=== PATIENT | female | born 1965 | race Caucasian/White ===

== ENCOUNTER 2017-06-20 23:21 | Emergency (ER) | payer OTHER ==
[~2017-06-20] VITALS: Ht 167.6 cm; Wt 80.0 kg
[~2017-06-20 23:21] MED LIST: PRIL20CA PO; PROT40TA PO; SUCR1S PO
[2017-06-20 23:22] VITALS: BP 135/81; PULSE 120; RESP 16; TEMP 99; O2SAT 98
[2017-06-20] MEDS ORDERED: HYDR12.57 PO (23:41)
[2017-06-20] MEDS ORDERED: PHEN1LIQ60 PO (23:41)
[2017-06-20] MEDS ORDERED: AMLO5TAB2 PO (23:41)
[2017-06-20 23:48] VITALS: BP 147/77; PULSE 108; RESP 20; O2SAT 97
[2017-06-20] MEDS ORDERED: SODIUM CHLOR 0.9% 1000 ML INJ 1,000 ML IV ONE (23:57)
[2017-06-21] MEDS ORDERED: SODIUM CHLORIDE 0.9% FLUSH 10 ML FLUSH IVF PRN
--- NOTE | 2017-06-21 00:19 | RADRPT ---
EXAM DATE/TIME: 06/21/2017 00:03 [facility] COMPARISON: No previous studies available for comparison. INDICATIONS : Chest pain and weakness MEDICAL HISTORY : None. SURGICAL HISTORY : None. ENCOUNTER: Initial ACUITY: 1 day PAIN SCORE: 7/10 LOCATION: Bilateral chest FINDINGS: Single AP view of the chest. The lungs are clear. Cardiomediastinal silhouette within normal limits. No evidence of pleural effusion or pneumothorax. CONCLUSION: No acute cardiopulmonary disease identified. Lui Doherty MD on June 21, 2017 at 0:15 Board Certified Radiologist. This report was verified electronically.
[2017-06-21 00:39] LABS: AUTOMATED NEUTROPHIL # 7.5 TH/MM3 (1.8-7.7); BASOPHIL % 0.2 % (0.0-2.0); EOSINOPHIL # 0.1 TH/MM3 (0-0.4); EOSINOPHIL % 0.7 % (0.0-4.0); HEMATOCRIT 38.5 % (35.0-46.0); HEMOGLOBIN 13.4 GM/DL (11.6-15.3); LYMPH % 9.3 % (9.0-44.0); LYMPHOCYTE # 0.9 TH/MM3 (1.0-4.8); MEAN CELL VOLUME 87.1 FL (80.0-100.0); MEAN CORPUSCULAR HEMOGLOBIN 30.3 PG (27.0-34.0); MEAN CORPUSCULAR HGB CONC 34.7 % (32.0-36.0); MONO % 8.4 % (0.0-8.0); MONOCYTE # 0.8 TH/MM3 (0-0.9); NEUT % 81.4 % (16.0-70.0); PLATELET COUNT 245 TH/MM3 (150-450); RED BLOOD COUNT 4.42 MIL/MM3 (4.00-5.30); RED CELL DISTRIBUTION WIDTH 13.1 % (11.6-17.2); WHITE BLOOD COUNT 9.2 TH/MM3 (4.0-11.0)
[2017-06-21 00:54] LABS: PROTHROMBIN TIME - PATIENT 10.1 SEC (9.8-11.6)
--- NOTE | 2017-06-21 01:00 | RADRPT ---
EXAM DATE/TIME: 06/21/2017 00:37 [facility] COMPARISON: No previous studies available for comparison. INDICATIONS : Seizures. RADIATION DOSE: 56.35 CTDIvol (mGy) MEDICAL HISTORY : Cardiovascular disease. Hypertension. Gastroesophageal reflux disease. SURGICAL HISTORY : Cholecystectomy. ENCOUNTER: Initial ACUITY: 1 day PAIN SCALE: 0/10 LOCATION: cranial TECHNIQUE: Multiple contiguous axial images were obtained of the head. Using automated exposure control and adj ustment of the mA and/or kV according to patient size, radiation dose was kept as low as reasonably a chievable to obtain optimal diagnostic quality images. DICOM format image data is available electro nically for review and comparison. FINDINGS: CEREBRUM: The ventricles are normal for age. No evidence of midline shift, mass lesion, hemorrhage or acute in farction. No extra-axial fluid collections are seen. POSTERIOR FOSSA: The cerebellum and brainstem are intact. The 4th ventricle is midline. The cerebellopontine angle i s unremarkable. EXTRACRANIAL: The visualized portion of the orbits is intact. SKULL: The calvaria is intact. No evidence of skull fracture. CONCLUSION: No acute intracranial findings. Lui Doherty MD on June 21, 2017 at 0:51 Board Certified Radiologist. This report was verified electronically.
[2017-06-21 01:13] LABS: ALBUMIN 3.6 GM/DL (3.4-5.0); ALKALINE PHOSPHATASE 52 U/L (45-117); ALT (GPT) 20 U/L (10-53); AST (GOT) 17 U/L (15-37); BICARBONATE 24.6 MEQ/L (21.0-32.0); BLOOD UREA NITROGEN 6 MG/DL (7-18); CALCIUM 8.5 MG/DL (8.5-10.1); CHLORIDE 100 MEQ/L (98-107); CREATININE 0.89 MG/DL (0.50-1.00); GLOMERULAR FILTRATION RATE 67 ML/MIN (>89); GLUCOSE,RANDOM 194 MG/DL (74-106); SODIUM (NA) 136 MEQ/L (136-145); TOTAL BILIRUBIN ADULT 0.4 MG/DL (0.2-1.0); TOTAL PROTEIN 7.6 GM/DL (6.4-8.2); TROPONIN I LESS THAN 0.02 NG/ML (0.02-0.05)
[2017-06-21 01:35] LABS: BACTERIA, URINE FEW /hpf; BILIRUBIN, URINE NEG (NEG); BLOOD, URINE MOD (NEG); GLUCOSE,URINE 70 mg/dL (NEG); KETONE, URINE 10 mg/dL (NEG); MUCUS URINE FEW /lpf (OCC); NITRITE,URINE NEG (NEG); PH, URINE 7.5 (5.0-8.5); URINE LEUKOCYTE ESTERASE SMALL (NEG)
[2017-06-21 01:36] LABS: URINE COLOR RED (YELLW/STRAW)
[2017-06-21] MEDS ORDERED: POTASSIUM CHLORIDE 20 MEQ CONTROLLED RELEASE TAB PO ONE (01:45)
[2017-06-21] MEDS ORDERED: cefTRIAXone INJ 1,000 MG in SODIUM CHLORIDE 0.9% INJ 100 ML IV ONE (01:45)
[2017-06-21] MEDS ORDERED: POTASSIUM CHLOR 10 MEQ PREMIX 100 ML IV ONE (01:45)
--- NOTE | 2017-06-21 01:47 | PD ---
HPI Chief Complaint: Seizure Time Seen by Provider: 23:57 Travel History International Travel<30 days: No Contact w/Intl Traveler<30days: No Traveled to known affect area: No History of Present Illness HPI 51-year-old female presents to the emergency department the care of spouse for evaluation of possible new-onset seizure. Patient has felt poorly since family members have had respiratory illness. Patient to continue dxwr-wrp-ebcosjm multiple medication cold preparation and shortly thereafter started to feel as if she was going to vomit sat down on the floor to vomit and then was witnessed by spouse to have a syncopal episode where she was shaking and spouse felt she had had a seizure for approximately 30 seconds in duration. Patient reportedly awakened she wasn't where she was for a few minutes and then had an additional episode with jerking and shaking and this was approximately 20 seconds induration and afterwards she was confused for several minutes and then returned back to her baseline mentation. No prior history of seizure disorder no prior history of syncope. Patient does have history of hypertension and PVCs. Patient presently complains of lower abdominal pain consistent with menses which she states is normal for her. There was no trauma associated with the event as it was witnessed and patient was assisted to the floor from a sitting position. No head injury. Patient does not complain of headache or neck stiffness. No complaint of shortness of breath or chest pain no generalized abdominal pain or epigastric pain no flank pain no mid scapular pain and no extremity numbness tingling or weakness. Patient reportedly has had fever of 102 over the past 2 days. PFSH Past Medical History Narrative Medical PVCs hypertension cholecystectomy occasional alcohol use nursing notes reviewed Heart Rhythm Problems: Yes (PVC) Cardiovascular Problems: Yes (PVC'S, HTN) GERD: Yes Reproductive: Yes (Menorrhagia; scheduled for hysterectomy 06/29/17) ?: Not LMP: 06/20/17 Past Surgical History Cholecystectomy: Yes (1997) Social History Alcohol Use: Yes (SOCIALLY) Tobacco Use: No (QUIT 13 YEARS AGO) Substance Use: No Allergies-Medications (Allergen,Severity, Reaction): Coded Allergies: codeine (Unverified Allergy, Unknown, 06/20/17) "shakes" and "vomits violently" Reported Meds & Prescriptions Reported Meds & Active Scripts Active Reported Amlodipine (Amlodipine Besylate) 5 Mg Tab 5 Mg PO DAILY Hydrochlorothiazide 12.5 Mg Cap 12.5 Mg PO DAILY Nyquil Severe Cold/Flu Liq (Cufkmohoqfecs-Cujqwoumjz-GP-Apap Liq) 5-6.25-10-325 Mg/15 Ml Liq 30 Ml PO Q4HR PRN Review of Systems Except as stated in HPI: all other systems reviewed are Neg General / Constitutional: Positive: Fever HENT: Positive: Lightheadedness, Congestion Cardiovascular: No: Chest Pain or Discomfort Respiratory: Positive: Cough, No: Shortness of Breath, Wheezing Gastrointestinal: Positive: Nausea, Vomiting, No: Diarrhea, Abdominal Pain Genitourinary: No: Frequency, Dysuria Musculoskeletal: Positive: Myalgias, Arthralgias Skin: No Rash Neurologic: Positive: Weakness, Dizziness, Syncope, No: Focal Abnormalities, Coordination Problem, Headache, Change in Mentation, Slurred Speech Psychiatric: No: Anxiety Endocrine: No: Heat Intolerance Hematologic/Lymphatic: No: Easy Bruising Physical Exam Narrative GENERAL: Well-developed well-nourished female in no acute distress no respiratory distress SKIN: Warm and dry. HEAD: Atraumatic. Normocephalic. EYES: Pupils equal and round. No scleral icterus. No injection or drainage. ENT: No nasal bleeding or discharge. Mucous membranes pink and moist. NECK: Trachea midline. No JVD. CARDIOVASCULAR: Regular rate and rhythm. RESPIRATORY: No accessory muscle use. Clear to auscultation. Breath sounds equal bilaterally. GASTROINTESTINAL: Abdomen soft, non-tender, nondistended. Hepatic and splenic margins not palpable. MUSCULOSKELETAL: Extremities without clubbing, cyanosis, or edema. No obvious deformities. NEUROLOGICAL: Awake and alert. No obvious cranial nerve deficits. Motor grossly within normal limits. Five out of 5 muscle strength in the arms and legs. Normal speech. PSYCHIATRIC: Appropriate mood and affect; insight and judgment normal. Data Data Last Documented VS Vital Signs Date Time Temp Pulse Resp B/P (MAP) Pulse Ox O2 Delivery O2 Flow Rate FiO2 06/21/17 02:06 99 Room Air 06/20/17 23:48 108 20 06/20/17 23:22 99.0 Orders Orders Electrocardiogram (06/20/17 23:57) Ed Urine Pregnancytest Poc (06/20/17 23:57) Complete Blood Count With Diff (06/20/17 23:57) Comprehensive Metabolic Panel (06/20/17 23:57) Magnesium (Mg) (06/20/17 23:57) Troponin I (06/20/17 23:57) Act Partial Throm Time (Ptt) (06/20/17 23:57) Prothrombin Time / Inr (Pt) (06/20/17 23:57) Urinalysis - C+S If Indicated (06/20/17 23:57) Chest, Single Ap (06/20/17 23:57) Ct Brain W/O Iv Contrast(Rout) (06/20/17 23:57) Ecg Monitoring (06/20/17 23:57) Iv Access Insert/Monitor (06/20/17 23:57) Oximetry (06/20/17 23:57) Sodium Chloride 0.9% Flush (Ns Flush) (06/21/17 00:00) Sodium Chlor 0.9% 1000 Ml Inj (Ns 1000 M (06/20/17 23:57) Influenzae A/B Antigen (06/20/17 23:57) Urine Culture (06/21/17 00:35) Potassium Chlor 10 Meq Premix (Kcl 10 Me (06/21/17 01:45) Potassium Chloride (Kcl) (06/21/17 01:45) Ceftriaxone Inj (Rocephin Inj) (06/21/17 01:45) Cath For Specimen (06/21/17 01:47) Urinalysis - C+S If Indicated (06/21/17 03:59) Labs Laboratory Tests Test 06/20/17 23:50 06/21/17 00:35 06/21/17 03:15 White Blood Count 9.2 TH/MM3 Red Blood Count 4.42 MIL/MM3 Hemoglobin 13.4 GM/DL Hematocrit 38.5 % Mean Corpuscular Volume 87.1 FL Mean Corpuscular Hemoglobin 30.3 PG Mean Corpuscular Hemoglobin Concent 34.7 % Red Cell Distribution Width 13.1 % Platelet Count 245 TH/MM3 Mean Platelet Volume 8.0 FL Neutrophils (%) (Auto) 81.4 % Lymphocytes (%) (Auto) 9.3 % Monocytes (%) (Auto) 8.4 % Eosinophils (%) (Auto) 0.7 % Basophils (%) (Auto) 0.2 % Neutrophils # (Auto) 7.5 TH/MM3 Lymphocytes # (Auto) 0.9 TH/MM3 Monocytes # (Auto) 0.8 TH/MM3 Eosinophils # (Auto) 0.1 TH/MM3 Basophils # (Auto) 0.0 TH/MM3 CBC Comment DIFF FINAL Differential Comment Prothrombin Time 10.1 SEC Prothromb Time International Ratio 1.0 RATIO Activated Partial Thromboplast Time 26.4 SEC Blood Urea Nitrogen 6 MG/DL Creatinine 0.89 MG/DL Random Glucose 194 MG/DL Total Protein 7.6 GM/DL Albumin 3.6 GM/DL Calcium Level 8.5 MG/DL Magnesium Level 2.0 MG/DL Alkaline Phosphatase 52 U/L Aspartate Amino Transf (AST/SGOT) 17 U/L Alanine Aminotransferase (ALT/SGPT) 20 U/L Total Bilirubin 0.4 MG/DL Sodium Level 136 MEQ/L Potassium Level 2.9 MEQ/L Chloride Level 100 MEQ/L Carbon Dioxide Level 24.6 MEQ/L Anion Gap 11 MEQ/L Estimat Glomerular Filtration Rate 67 ML/MIN Troponin I LESS THAN 0.02 NG/ML Urine Color RED LIGHT-YELLOW Urine Turbidity CLOUDY CLEAR Urine pH 7.5 7.0 Urine Specific [place] 1.024 1.003 Urine Protein 100 mg/dL NEG mg/dL Urine Glucose (UA) 70 mg/dL NEG mg/dL Urine Ketones 10 mg/dL NEG mg/dL Urine Occult Blood MOD NEG Urine Nitrite NEG NEG Urine Bilirubin NEG NEG Urine Urobilinogen LESS THAN 2.0 MG/DL LESS THAN 2.0 MG/DL Urine Leukocyte Esterase SMALL NEG Urine RBC /hpf LESS THAN 1 /hpf Urine WBC 173 /hpf 2 /hpf Urine Bacteria FEW /hpf Urine Mucus FEW /lpf Microscopic Urinalysis Comment CULTURE INDICATED CATH-CULT NOT IND Urine Squamous Epithelial Cells 1 /hpf [facility] Medical Decision Making Medical Screen Exam Complete: Yes Emergency Medical Condition: Yes Medical Record Reviewed: Yes Interpretation(s) EKG: Normal sinus rhythm rate [address] elevation injury pattern or ectopy noted Last Impressions Head CT 06/20/172356 Signed Impressions: Service Date/Time: Wednesday, June 21, 2017 00:37 - CONCLUSION: No acute intracranial findings. Lui Doherty MD Chest X-Ray 06/20/172356 Signed Impressions: Service Date/Time: Wednesday, June 21, 2017 00:03 - CONCLUSION: No acute cardiopulmonary disease identified. Lui Doherty MD CBC & BMP Diagram 06/20/17 23:50 Total Protein 7.6, Albumin 3.6, Calcium Level 8.5, Magnesium Level 2.0, Alkaline Phosphatase 52, Aspartate Amino Transf (AST/SGOT) 17, Alanine Aminotransferase (ALT/SGPT) 20, Total Bilirubin 0.4 Vital Signs Date Time Temp Pulse Resp B/P (MAP) Pulse Ox O2 Delivery O2 Flow Rate FiO2 06/21/17 02:06 99 Room Air 06/20/17 23:48 108 20 147/77 (100) 97 06/20/17 23:22 99.0 120 16 135/81 (99) 98 Room Air Differential Diagnosis Near syncope syncope new-onset seizure adverse medication reaction arrhythmia electrolyte disturbance ACS PE influenza UTI Narrative Course patient placed on bus driver/monitor with continuous pulse oximetry specimens collected and sent for resulting in CT brain noncontrast performed Patient administered IV fluids Patient resting comfortably no seizure activity or syncopal activity witnessed in the emergency department patient is up out of bed to provide urine specimen Identified urine specimen as clean-catch with menses therefore many casts catheter specimen collected for fracture urinalysis Patient received additional IV fluids Rocephin 1 g IV piggyback also potassium replacement with IV potassium and oral potassium Patient resting comfortable he was seen no complaints 5:30 AM patient is clinically stable for outpatient management and follow-up with primary care provider Diagnosis Primary Impression: Syncope Qualified Codes: R55 - Syncope and collapse Additional Impressions: Hypokalemia URI (upper respiratory infection) Qualified Codes: J06.9 - Acute upper respiratory infection, unspecified Adverse effect of zybh-gxh-rzxvodd medication Qualified Codes: T50.905A - Adverse effect of unspecified drugs, medicaments and biological substances, initial encounter Referrals: Primary Care Physician 1 day Patient Instructions: General Instructions Additional Instructions: Increase fluid hydration Takes Zofran as prescribed as needed for nausea and/or vomiting No work 2 days Monitor temperature every 4 hours with thermometer take as needed acetaminophen/ Tylenol every 4 hours for fever 100.4F or greater or may use ibuprofen/Advil/ Motrin every 6-8 hours as needed for fever 100.4F or greater Follow-up with your primary care provider call office on Thursday to schedule follow-up appointment on Thursday Return to the emergency department for any concerns or change in condition No driving of vehicle's climbing ladders or swimming until followed by primary care provider Add potassium containing foods and beverages to dietary intake Do not use jwzh-xct-olftdfo cold and cough preparations Complete course of antibiotic as prescribed Med/Other Pt SpecificInfo: Prescription(s) given Scripts Cefuroxime (Ceftin) 250 Mg Tab 500 MG PO BID for 7 Days, #28 TAB Prov: Patricia Cline MD 06/21/17 Potassium Chloride ER (Potassium Chloride ER) 10 Meq Cap 10 MEQ PO BID for Electrolyte Replacement for 5 Days, #10 CAP 0 Refills Prov: Patricia Cline MD 06/21/17 Ondansetron Odt (Zofran Odt) 4 Mg Tab 4 MG SL Q6HR Y for Nausea/Vomiting, #10 TAB 0 Refills Prov: Patricia Cline MD 06/21/17 Disposition: 01 DISCHARGE HOME Condition: Stable Patricia Cline MD Jun 21, 2017 01:47
[2017-06-21 02:06] VITALS: O2SAT 99
[2017-06-21 04:14] LABS: BILIRUBIN, URINE NEG (NEG); BLOOD, URINE NEG (NEG); GLUCOSE,URINE NEG (NEG); KETONE, URINE NEG (NEG); NITRITE,URINE NEG (NEG); SQUAMOUS EPITHELIAL CELL URINE 1 /hpf (0-5); URINE COLOR LIGHT-YELLOW (YELLW/STRAW); URINE LEUKOCYTE ESTERASE NEG (NEG)
[2017-06-21] MEDS ORDERED: POTA10CA PO (05:29)
[2017-06-21] MEDS ORDERED: CEFU1TAB18 PO (05:29)
[2017-06-21] MEDS ORDERED: ZOFR4TAB3 SL (05:29)
--- NOTE | 2017-06-21 13:44 | EKG ---
Date Performed: 06/21/2017 Time Performed: 01:57:17 PTAGE: 51 years EKG: Sinus rhythm NORMAL ECG NO PREVIOUS TRACING DOCTOR: Ben Zuluaga Interpretating Date/Time 06/21/2017 13:43:04
== END 2017-06-21 06:06 | disposition home or self-care (01) ==
LOC: NEPC 23:21
DX: R55 Syncope and collapse (principal); E87.6 Hypokalemia; J06.9 Acute upper respiratory infection, unspecified; T49.3X5A Adverse effect of emollients, demulcents and protectants, initial encounter; R11.2 Nausea with vomiting, unspecified; R53.1 Weakness; I10 Essential (primary) hypertension; I49.3 Ventricular premature depolarization; K21.9 Gastro-esophageal reflux disease without esophagitis
CPT/HCPCS: 70450; 71045; 80053; 81001; 83735; 84484; 84703; 85025; 85610; 85730; 87086; 87804; 93005; 96361; 96365; 96366; 96367; 99285; J0696; J3480; J7030

== ENCOUNTER 2018-04-26 05:40 | Inpatient (IN) ==
[2018-04-26] MEDS ORDERED: Chlorhexidine Gluconate 2% 1 Pack (2 Cloths) TOPICAL ONE (06:20)
[2018-04-26] MEDS ORDERED: Metoprolol Tartrate 25 MG Tablet PO ONE (06:20)
[2018-04-26] MEDS ORDERED: ceFAZolin 2 GM IV; once IV.SIG ONE (06:30)
[2018-04-26] MEDS ORDERED: Sodium Chlor 0.9% Inj 500 ML IV.SIG SCH (07:00)
[2018-04-26] MEDS ORDERED: Estrogens Congugated Vag Cream w/app 30 GM Tube VAGINAL ONE (07:08)
[2018-04-26] MEDS ORDERED: Bupivacaine/Epinephrine Inj 0.25% 50 ML Vial ONE (07:08)
[2018-04-26] MEDS ORDERED: Succinylcholine Inj 100 MG/5 ML Syringe IV.PUSH ONE (08:05)
[2018-04-26] MEDS ORDERED: Lidocaine PF 1% Inj 5 ML Syringe OTHER ONE (08:05)
[2018-04-26] MEDS ORDERED: Phenylephrine/NS 1000 MCG/10ML Syringe IV.PUSH ONE (08:05)
[2018-04-26] MEDS ORDERED: Bupivacaine Liposomal PF 1.3% Inj 20 ML Vial ONE (09:08)
[2018-04-26] MEDS ORDERED: Promethazine 25 MG Supp RECTAL PRN (10:49)
[2018-04-26] MEDS ORDERED: Ibuprofen 600 MG Tablet PO PRN (10:49)
[2018-04-26] MEDS ORDERED: Naloxone Inj 0.4 MG/ML Vial IV.PUSH PRN (10:49)
[2018-04-26] MEDS ORDERED: Zolpidem Tartrate 5 MG Tablet PO PRN (10:49)
--- NOTE | 2018-04-26 10:57 | P.BOP ---
- Preoperative Diagnosis (1) Menorrhagia (2) Leiomyoma (3) Pelvic pain - Postoperative Diagnosis (1) Leiomyoma (2) Menorrhagia (3) Pelvic pain Date of procedure: 04/26/18 Procedure: Diagnostic laparoscopy, Total abdominal hysterectomy, bilateral salpingectomy Anesthesia: GETA Surgeon: Daniela Sewell MD Crop Scout: Keyanna Murphy Estimated blood loss (mL): 400 IV fluids (mL): 1,700 Urine output (mL): 300 Pathology: other (uterus, cervix, bilateral fallopian tubes) Condition: stable Disposition: PACU
[2018-04-26] MEDS ORDERED: fentaNYL Citrate Inj 100 MCG/2 ML Ampul ONE (11:25)
[2018-04-26] MEDS ORDERED: *morphine SULFATE 4 MG/ML PERIprocedure ONLY ONE ×2 (11:33→11:53)
[2018-04-26] MEDS ORDERED: Morphine Inj 30 MG/30 ML PCA.VIAL PCA ONE (11:38)
[2018-04-26] MEDS: Morphine Inj 30 MG/30 ML PCA.VIAL PCA PRN ×2 (11:51→19:16)
[2018-04-26] MEDS ORDERED: Morphine Inj 4 MG/ML Vial IV.SIG ONE (12:30)
[2018-04-26] MEDS: Docusate Sodium 100 MG Capsule PO SCH ×3 (13:51→21:47)
--- NOTE | 2018-04-26 22:17 | MP ---
cc: Daniela Sewell MD DATE OF OPERATION: 04/26/2018 DATE OF SURGERY: 04/26/2018. PREOPERATIVE DIAGNOSES: 1. Menorrhagia. 2. Pelvic pain. 3. Leiomyoma. POSTOPERATIVE DIAGNOSES: 1. Menorrhagia. 2. Pelvic pain. 3. Leiomyoma. PROCEDURE PERFORMED: Diagnostic laparoscopy, total abdominal hysterectomy, bilateral salpingectomy. SURGEON: Daniela Sewell MD TEACHER OF THE SIGHT IMPAIRED: Keyanna Murphy MD ANESTHESIA: General endotracheal anesthesia. PREOPERATIVE ANTIBIOTICS: Ancef 2 grams preincision. DEEP VENOUS THROMBOSIS PROPHYLAXIS: SCDs on bilateral extremities. ESTIMATED BLOOD LOSS: 400 mL. IV FLUID: 1700 mL of lactated Ringer. URINE OUTPUT: 300 mL of clear yellow urine at the end of the case. COMPLICATIONS: None. COUNTS: Correct. PATHOLOGY: Uterus, cervix, and bilateral fallopian tubes. CONDITION: Stable. DISPOSITION: PACU. INTRAOPERATIVE FINDINGS: On bimanual exam, cervix was noted to be approximately 2 cm in width, uterus enlarged, approximately 9 cm in size. Fibroid was palpated anteriorly through the vaginal wall. The pelvis was narrow and the vagina felt narrow as well. On laparoscopic inspection of the uterus was more large than expected from bimanual exam and from imaging. There is a large 5-6 cm fibroid on the left anterior lower uterine segment, which obscured visualization of the bladder and the round left ligament was significantly attenuated with poor visualization of the posterior cul-de-sac as well. Given there was poor visualization of the landmarks necessary to proceed with a laparoscopic procedure and concern for ability for specimen to deliver vaginally, the procedure was converted to an open procedure. PROCEDURE IN DETAIL: After the informed consent, the patient was taken to the operating room, where general anesthesia was administered without complication. She was placed in the dorsal lithotomy position in Luis stirrups, abdomen and perineum were prepped and draped in normal sterile fashion. A bivalve speculum was placed in the vagina. Single-tooth tenaculum was placed on the anterior lip of the cervix. The cervix was dilated to accommodate a HUMI uterine manipulator. The uterus was sounded to 11 cm. The bivalve speculum and tenaculum were removed. The Velasquez was introduced in sterile fashion. Gloves were changed. Attention was turned to the abdomen. A 5 mm skin incision was made in the umbilicus after infiltration with Marcaine 0.25% with epinephrine. The abdomen was tented. A direct visual entry was performed. The abdomen was insufflated. Once intra-abdominal placement was confirmed, the inspection was then performed. Normal liver edge was noted. Appendix was not visualized. There was no evidence of endometriosis. The uterus was enlarged compared to ultrasound imaging. With the intraoperative finding, a decision was made to convert to an open procedure. The laparoscope and the trocar were removed. The abdomen was desufflated. The umbilical opening was closed with 4-0 Monocryl subcuticular stitch. A scalpel was then used to make a Pfannenstiel skin incision. This was carried down to the underlying layer of fascia. The fascia was incised in the midline and this was extended bilaterally with Maradiaga scissors. The superior edge of the fascia was grasped with Morgan clamps, elevated, and the rectus muscle dissected off of the fascia bluntly and with the aid of the Bovie. Of note, there were several perforating vessels in the muscles to the fascia. These were made hemostatic with the Bovie. The same was repeated on the inferior edge of the fascia. The rectus muscles were then in the midline and the peritoneum was entered bluntly. Of note, there was an increased amount of preperitoneal fat. Once the peritoneum was entered this was opened bluntly. A self-retaining retractor was then placed. Multiple moist laparotomy sponges were placed to retract the bowel. A self-retaining retractor was then placed. The bladder blade was then placed. The uterus was grasped in the corner regions bilaterally with Chica clamps and elevated. The right round ligament was doubly suture ligated with 0 Vicryl. The broad ligament was transected with the Bovie. A bladder flap was created with Metzenbaum scissors in a medial caudal fashion for the bladder reflection. A window was created in the broad ligament and the uteroovarian ligament was clamped, cut, suture ligated with a fore and aft, followed by a free tie. The fallopian tube grasped with a Leola clamp. The mesosalpinx was clamped with Chica clamp. Fallopian tube was removed with Maradiaga scissors and a fore and aft was used to suture ligate the pedicle. Good hemostasis was noted. On the left aspect of the uterus, a large fibroid was putting tension on the broad ligament and round ligament. The [place] clamp was placed on the area of the round ligament. In a similar fashion, broad ligament was double suture ligated. The round ligament was transected with the Bovie and the bladder flap developed with Metzenbaum scissors. A window was created in the broad ligament. A Rick clamp was placed across the uteroovarian ligament and was transected with a Maradiaga. A fore and aft suture and then a free tie was used to ligate the pedicle. The fallopian tube on the left was similarly clamped, cut, and suture ligated. Serial bites across the cardinal ligament and the base of the cervix were performed. Pedicles were clamped, cut, and suture ligated with 0 Vicryl. Once the base of the cervix was reached curved clamps were placed and the specimen was removed with scissors. The angles of the specimen were suture ligated with a fixation stitch and incorporated the uterosacral ligament. The remaining cuff was sutured with a running locked 0 Vicryl. Good hemostasis was noted. The pelvis was irrigated. All pedicles were hemostatic. Kalyn was placed on the vaginal cuff and all pedicles. The retractor was removed. All laps were removed. A count was performed and noted to be correct. The peritoneum was then brought together with 2-0 chromic in a running fashion. The fascia was closed with #1 Vicryl in a running fashion with 2 different sutures. The subcutaneous tissue was irrigated and suctioned and 2-0 chromic was used to close this layer. The skin was closed with 3-0 Monocryl in subcuticular fashion. Pressure dressing was placed after a TAP block was performed for pain control. The patient was placed in dorsal supine position. Anesthesia was reversed without complication. The patient was taken to PACU in stable condition. MD ADEOLA Rosa/victor manuel , 05:49 PM , 06:01 PM
[2018-04-26 23:59] VITALS: O2SAT 98
[2018-04-27 05:52] LABS: Baso % (Auto) 0.1 % (0.0-2.0); Eos % (Auto) 0.1 % (0.0-4.0); Hematocrit 33.3 % (35.0-46.0); Hemoglobin 11.3 gm/dL (11.6-15.3); Lymph # (Auto) 1.6 th/mm3 (1.0-4.8); Lymph % (Auto) 13.7 % (9.0-44.0); Mean Corpuscular HGB Conc 33.8 % (32.0-36.0); Mean Corpuscular Hemoglobin 30.5 pg (27.0-34.0); Mean Corpuscular Volume 90.3 fL (80.0-100.0); Mean Platelet Volume 7.9 fL (7.0-11.0); Mono # (Auto) 0.8 th/mm3 (0.0-0.9); Mono % (Auto) 6.8 % (0.0-8.0); Neut # (Auto) 9.3 th/mm3 (1.8-7.7); Neut % (Auto) 79.3 % (16.0-70.0); Platelet Count 245 th/mm3 (150-450); Red Blood Count 3.69 mil/mm3 (4.00-5.30); Red Cell Distribution Width 14.2 % (11.6-17.2); White Blood Count 11.7 th/mm3 (4.0-11.0)
[2018-04-27 07:39] VITALS: RESP 20
--- NOTE | 2018-04-27 08:08 | P.PNOB ---
Subjective Post op day: 1 Interval history: does not like morphine, has been up and ambulated once. Had min food last night. Velasquez out. Objective Vital Signs/I&O: Vital Signs 04/26/18 11:19 04/26/18 11:30 04/26/18 11:45 Temperature 97.8 F Pulse Rate 75 73 74 Respiratory Rate 16 16 16 Blood Pressure 139/67 127/66 117/64 Pulse Oximetry 100 100 100 04/26/18 12:00 04/26/18 12:05 04/26/18 12:22 Temperature 97.9 F 97.8 F Pulse Rate 74 87 Respiratory Rate 16 16 Blood Pressure 126/58 L 113/69 Pulse Oximetry 100 100 98 04/26/18 17:45 04/26/18 19:34 04/26/18 23:58 Temperature 98.1 F 98.3 F 98.2 F Pulse Rate 114 H 124 H 110 H Respiratory Rate 18 18 18 Blood Pressure 138/79 123/69 119/71 Pulse Oximetry 96 98 04/27/18 04:03 04/27/18 07:38 Temperature 98.5 F 98.0 F Pulse Rate 103 H 100 H Respiratory Rate 18 20 Blood Pressure 127/72 148/91 H Pulse Oximetry 98 98 Intake & Output 04/26/18 04/27/18 04/27/18 18:59 06:59 18:59 Intake Total 1350 / 1350 1100 / 1100 Output Total 1275 / 1275 900 / 900 1300 / 1300 Balance 75 / 75 200 / 200 -1300 / -1300 Intake: IV 1150 / 1150 1100 / 1100 LR 1000 mL Inj 1,000 ML @ 125 1000 / 1000 1000 / 1000 mls/hr IV.CONT .Q8H [facility] Rx#: [id number] Ofirmev Inj 1,000 mg In 100 ml 100 / 100 100 / 100 @ 400 mls/hr IV.SIG Q6H [facility] Rx# :[id number] Ancef 2 GM Premix Inj 2 gm In 50 / 50 50 ml @ 100 mls/hr IV.SIG ONCE ONE Rx#:[id number] Anesthesia Amount 200 / 200 Output: Estimated Blood Loss 400 / 400 Urine Amount (Catheter) 875 / 875 900 / 900 1300 / 1300 Indwelling Urethral Catheter 875 / 875 900 / 900 1300 / 1300 Result Diagrams: 04/27/18 04:44 Objective Remarks: GENERAL: Well-nourished, well-developed patient. CARDIOVASCULAR: Regular rate and rhythm without murmurs, gallops, or rubs. RESPIRATORY: Breath sounds equal bilaterally. No accessory muscle use. ABDOMEN/GI: Abdomen soft, non-tender, bowel sounds present. Incision: dressing Clean, dry and intact. GENITOURINARY: Light to moderate bleeding. EXTREMITIES: No cyanosis or edema, non-tender, without signs of DVT. Medications and IVs: Active Medications Acetaminophen (Tylenol) 650 mg PO Q4H PRN PRN Reason: FEVER > 101 F Diphenhydramine HCl (Benadryl Inj) 25 mg IV.PUSH Q6H PRN PRN Reason: ITCHING Docusate Sodium (Colace) 100 mg PO Q12HR [facility] Last Admin: 04/26/18 21:47 Dose: Not Given Sodium Chloride (Ns Inj) 500 mls @ 30 mls/hr IV.SIG .Q10H [facility] Last Admin: 04/26/18 07:23 Dose: Not Given Acetaminophen (Ofirmev Inj) 1,000 mg in 100 mls @ 400 mls/hr IV.SIG Q6H [facility] Stop: 04/27/18 09:14 Last Admin: 04/27/18 02:57 Dose: 400 mls/hr Morphine Sulfate (Morphine Inj) 30 mg in 30 mls @ 0 mls/hr 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 [employer]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 UNSCH PRN PRN Reason: prn pain Last Admin: 04/26/18 19:16 Dose: 0 mls/hr Lactated Ringer's (Lr 1000 Ml Inj) 1,000 mls @ 125 mls/hr IV.CONT .Q8H [facility] Last Admin: 04/27/18 02:11 Dose: 125 mls/hr Ibuprofen (Motrin) 600 mg PO Q6H PRN PRN Reason: PAIN SCALE 1 TO 2 Miscellaneous Information ([facility] Information) 0 each OTHER UNSCH PRN PRN Reason: SEE LABEL COMMENTS Stop: 04/27/18 11:19 Naloxone HCl (Narcan Inj) 0.4 mg IV.PUSH PRN PRN PRN Reason: Resp rate < 10 Ondansetron HCl (Zofran Odt) 4 mg PO Q6H PRN PRN Reason: NAUSEA OR VOMITING Ondansetron HCl (Zofran Inj) 4 mg IV.PUSH Q6H PRN PRN Reason: NAUSEA OR VOMITING Last Admin: 04/26/18 21:48 Dose: 4 mg Oxycodone/Acetaminophen (Percocet 5/325 Mg) 1 tab PO Q4H PRN PRN Reason: PAIN SCALE 3 TO 5 Promethazine HCl (Phenergan) 25 mg PO Q6H PRN PRN Reason: NAUSEA OR VOMITING Promethazine HCl (Phenergan Supp) 25 mg RECTAL Q6H PRN PRN Reason: NAUSEA OR VOMITING Sodium Chloride (Ns Flush) 2 ml IV.FLUSH PRN PRN PRN Reason: FLUSH AFTER USING IV ACCESS Sodium Chloride (Ns Flush) 2 ml IV.FLUSH BID MACKENZIE Last Admin: 04/26/18 21:48 Dose: 2 ml Zolpidem Tartrate (Ambien) 5 mg PO HS PRN PRN Reason: INSOMNIA Assessment and Plan - Diagnosis (1) S/P hysterectomy Code(s): Z90.710 - Acquired absence of both cervix and uterus Status: Acute - Plan POD 1 OLIVIER with bilateral salpingectomy 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 Dispo later today or tomorrow.
[2018-04-27] MEDS: Docusate Sodium 100 MG Capsule PO SCH (09:48)
[2018-04-27] MEDS ORDERED: Ibuprofen 600 MG Tablet PO SCH (12:00)
[2018-04-27] MEDS ORDERED: Acetaminophen 325 MG Tablet PO PRN (15:00)
[2018-04-27 16:27] VITALS: BP 144/75; PULSE 97; TEMP 98.1
== END 2018-04-27 17:23 | disposition home or self-care (01) ==
LOC: HSDC 05:40 → HSDI 10:49 → H1EA 12:17
PROVIDERS: ADMIT Obstetrics & Gynecology; ATTEND Obstetrics & Gynecology